=== PATIENT | female | born 1995 | race Caucasian/White ===

== ENCOUNTER 2018-01-03 13:46 | Emergency (ER) | payer OTHER ==
[2018-01-03] MEDS ORDERED: ASPI-1471 PO (14:06)
--- NOTE | 2018-01-03 14:06 | ER Report ---
History and Physical Time Seen By MD: 14:04 Hx. of Stated Complaint: patient had a iud placed a week; pt had an IUD that needed replaced, pt was , fertilized egg was d/c and new iud was placed; pt states increased bleeding and pain. (PRINCE COLLINS MD) HPI/ROS CHIEF COMPLAINT: Pelvic pain HISTORY OF PRESENT ILLNESS: Patient is a 22-year-old female who presents emergency Department with 1 week worth of pelvic pain and cramping along with some vaginal bleeding. She states proximal a 1 week ago she had an IUD placed in her hometown in [place]. She states she's had problems with IUDs in the past in that prior to the one that was displaced she had pelvic cramping but had a with the IUD. And so she ended up having a D&C and then the current IUD was placed approximately 7 days ago. She did call her [employer] OPERATOR and she was told to come to the emergency department for evaluation and possible removal of the IUD. Patient denies any fevers or chills. She denies any vomiting. She denies prior history of STDs. REVIEW OF SYSTEMS: Respiratory: No cough, no dyspnea. Cardiovascular: No chest pain, no palpitations. Gastrointestinal: No vomiting, no abdominal pain. Musculoskeletal: No back pain. : Pelvic pain, vaginal bleeding (PRINCE COLLINS MD) Allergies: Coded Allergies: No Known Drug Allergies (Unverified , 01/03/18) Home Meds Active Scripts Doxycycline Hyclate (DOXYCYCLINE HYCLATE) 100 Mg Tablet, 100 MG PO BID, #28 TAB Prov:CHRISTI CARDONA V DO 01/03/18 Hydrocodone Bit/Acetaminophen (HYDROCODON-ACETAMINOPHEN 5-325) 1 Each Tablet, 1 EACH PO Q4-6H PRN for PAIN, #15 TAB Prov:CHRISTI CARDONA V DO 01/03/18 Reported Medications Aspirin (ASPIR 81) 81 Mg Tablet.dr, 81 MG PO QDAY, TAB 01/03/18 Past Medical/Surgical History Factor V Leydig disorder (PRINCE COLLINS MD) Hx Substance Use Disorder: No (PRINCE COLLINS MD) Constitutional Vital Sign - Last 24 Hours 01/03/18 13:55 Temp 98.6 Pulse 89 Resp 18 B/P (MAP) 134/84 Pulse Ox 95 O2 Delivery Room Air (LAURORA,CHRISTI V DO) Physical Exam General Appearance: The patient is alert, has no immediate need for airway protection and no current signs of toxicity. Respiratory: Chest is non tender, lungs are clear to auscultation. Cardiac: regular rate and rhythm Gastrointestinal: Abdomen is soft and non tender, no masses, bowel sounds normal. (PRINCE COLLINS MD) Medical Decision Making Data Points Result Diagram: 01/03/18 1437 01/03/18 1437 Laboratory Hematology Test 01/03/18 13:51 01/03/18 14:37 Urine Color Yellow Urine Clarity Clear Urine pH 7.0 pH (4.8-9.5) Urine Specific [place] 1.017 Urine Protein Negative mg/dL (NEGATIVE) Urine Glucose (UA) Negative mg/dL (NEGATIVE) Urine Ketones Negative mg/dL (NEGATIVE) Urine Blood Trace intact (NEGATIVE) Urine Nitrite Negative (NEGATIVE) Urine Bilirubin Negative (NEGATIVE) Urine Urobilinogen Negative mg/dL (0.2-1.9) Urine Leukocyte Esterase Negative (NEGATIVE) Urine RBC 38 /HPF (0-2/HPF) Urine WBC 3 /HPF (0-5/HPF) Urine Squamous Epithelial Cells Many /LPF (</=FEW) Urine Bacteria Negative /HPF (NONE-FEW) Urine Mucus None /HPF (NONE-FEW) Urine HCG, Qualitative Positive (NEGATIVE) Red Blood Count 4.95 M/uL (4.17-5.56) Mean Corpuscular Volume 84.5 fL (80.0-96.0) Mean Corpuscular Hemoglobin 29.5 pg (26.0-33.0) Mean Corpuscular Hemoglobin Concent 35.0 g/dL (32.0-36.0) Red Cell Distribution Width 12.8 % (11.5-14.5) Mean Platelet Volume 8.5 fL (7.2-11.1) Neutrophils (%) (Auto) 62.7 % (39.4-72.5) Lymphocytes (%) (Auto) 27.6 % (17.6-49.6) Monocytes (%) (Auto) 7.1 % (4.1-12.4) Eosinophils (%) (Auto) 2.0 % (0.4-6.7) Basophils (%) (Auto) 0.6 % (0.3-1.4) Nucleated RBC Relative Count (auto) 0.0 /100WBC Neutrophils # (Auto) 3.7 K/uL (2.0-7.4) Lymphocytes # (Auto) 1.6 K/uL (1.3-3.6) Monocytes # (Auto) 0.4 K/uL (0.3-1.0) Eosinophils # (Auto) 0.1 K/uL (0.0-0.5) Basophils # (Auto) 0.0 K/uL (0.0-0.1) Nucleated RBC Absolute Count (auto) 0.00 K/uL Sodium Level 139 mmol/L (137-145) Potassium Level 4.0 mmol/L (3.5-5.0) Chloride Level 103 mmol/L (98-107) Carbon Dioxide Level 27 mmol/L (22-31) Blood Urea Nitrogen 8 mg/dl (7-18) Creatinine 0.70 mg/dl (0.52-1.04) Glomerular Filtration Rate Calc > 60.0 Random Glucose 92 mg/dl (75-110) Calcium Level 9.5 mg/dl (8.4-10.2) Human Chorionic Gonadotropin, Quant 3375 mIU/ml Chemistry Test 01/03/18 13:51 01/03/18 14:37 Urine Color Yellow Urine Clarity Clear Urine pH 7.0 pH (4.8-9.5) Urine Specific [place] 1.017 Urine Protein Negative mg/dL (NEGATIVE) Urine Glucose (UA) Negative mg/dL (NEGATIVE) Urine Ketones Negative mg/dL (NEGATIVE) Urine Blood Trace intact (NEGATIVE) Urine Nitrite Negative (NEGATIVE) Urine Bilirubin Negative (NEGATIVE) Urine Urobilinogen Negative mg/dL (0.2-1.9) Urine Leukocyte Esterase Negative (NEGATIVE) Urine RBC 38 /HPF (0-2/HPF) Urine WBC 3 /HPF (0-5/HPF) Urine Squamous Epithelial Cells Many /LPF (</=FEW) Urine Bacteria Negative /HPF (NONE-FEW) Urine Mucus None /HPF (NONE-FEW) Urine HCG, Qualitative Positive (NEGATIVE) White Blood Count 5.9 k/uL (4.5-11.0) Red Blood Count 4.95 M/uL (4.17-5.56) Hemoglobin 14.6 g/dL (12.0-16.0) Hematocrit 41.9 % (34.0-47.0) Mean Corpuscular Volume 84.5 fL (80.0-96.0) Mean Corpuscular Hemoglobin 29.5 pg (26.0-33.0) Mean Corpuscular Hemoglobin Concent 35.0 g/dL (32.0-36.0) Red Cell Distribution Width 12.8 % (11.5-14.5) Platelet Count 294 K/uL (150-450) Mean Platelet Volume 8.5 fL (7.2-11.1) Neutrophils (%) (Auto) 62.7 % (39.4-72.5) Lymphocytes (%) (Auto) 27.6 % (17.6-49.6) Monocytes (%) (Auto) 7.1 % (4.1-12.4) Eosinophils (%) (Auto) 2.0 % (0.4-6.7) Basophils (%) (Auto) 0.6 % (0.3-1.4) Nucleated RBC Relative Count (auto) 0.0 /100WBC Neutrophils # (Auto) 3.7 K/uL (2.0-7.4) Lymphocytes # (Auto) 1.6 K/uL (1.3-3.6) Monocytes # (Auto) 0.4 K/uL (0.3-1.0) Eosinophils # (Auto) 0.1 K/uL (0.0-0.5) Basophils # (Auto) 0.0 K/uL (0.0-0.1) Nucleated RBC Absolute Count (auto) 0.00 K/uL Glomerular Filtration Rate Calc > 60.0 Calcium Level 9.5 mg/dl (8.4-10.2) Human Chorionic Gonadotropin, Quant 3375 mIU/ml Urinalysis Test 01/03/18 13:51 Urine Color Yellow Urine Clarity Clear Urine pH 7.0 pH (4.8-9.5) Urine Specific [place] 1.017 Urine Protein Negative mg/dL (NEGATIVE) Urine Glucose (UA) Negative mg/dL (NEGATIVE) Urine Ketones Negative mg/dL (NEGATIVE) Urine Blood Trace intact (NEGATIVE) Urine Nitrite Negative (NEGATIVE) Urine Bilirubin Negative (NEGATIVE) Urine Urobilinogen Negative mg/dL (0.2-1.9) Urine Leukocyte Esterase Negative (NEGATIVE) Urine RBC 38 /HPF (0-2/HPF) Urine WBC 3 /HPF (0-5/HPF) Urine Squamous Epithelial Cells Many /LPF (</=FEW) Urine Bacteria Negative /HPF (NONE-FEW) Urine Mucus None /HPF (NONE-FEW) Urine HCG, Qualitative Positive (NEGATIVE) (CHRISTI CARDONA DO) ED Course/Re-evaluation ED Course 01/03/2018 2:17:20 pm plan at this time will be urinalysis and urine test. test is negative will perform pelvic exam to see if IUD can be removed. 01/03/2018 2:29:58 pm patient with positive urine test. While this could be related to her most recent status post therapeutic it also potentially could represent new . Plan at this time will be beta hCG Quant was also check CBC and electrolytes. We will send for GC and chlamydia. I will also perform a transvaginal ultrasound to look for signs of . Decision to Disposition Date: Jan 03, 2018 Decision to Disposition Time: 16:30 (PRINCE COLLINS MD) ED Course 01/03/2018 4:06:[address] Welch, diploma maker. [place] pt could have an endometritis. Recommend doxy 100mg bid for two weeks. And pt is to be followed up with repeat quant this sunday. 01/03/2018 4:20:00 pm Pt understands the need for repeat quant. PT was able to find her report from her ob from a few days ago which said her quant was 5528 at that time. It is encouraging that it is going down however until it is zero there is always a chance of retained products and pt will need close follow up. Pt states she understands. Pt was given a goodrx coupon for the doxy to rafat. Decision to Disposition Date: Jan 03, 2018 Decision to Disposition Time: 16:21 (CHRISTI CARDONA DO) Depart Departure Latest Vital Signs Vital Signs Date Time Temp Pulse Resp B/P (MAP) Pulse Ox O2 Delivery O2 Flow Rate FiO2 01/03/18 13:55 98.6 89 18 134/84 95 Room Air (CHRISTI CARDONA DO) Impression: Primary Impression: Positive test Additional Impressions: Pelvic pain History of use of contraceptive intrauterine device (IUD) Endometritis Condition: Stable Disposition: HOME OR SELF-CARE Referrals: FLORENCIO MADSEN MD Call to schedule follow-up appointment for evaluation of possible IUD removal New Scripts Doxycycline Hyclate (DOXYCYCLINE HYCLATE) 100 Mg Tablet 100 MG PO BID, #28 TAB Prov: CHRISTI CARDONA Bari DO 01/03/18 Hydrocodone Bit/Acetaminophen (HYDROCODON-ACETAMINOPHEN 5-325) 1 Each Tablet 1 EACH PO Q4-6H PRN for PAIN, #15 TAB Prov: TAMANNAADRIANADAVICHRISTI Bari DO 01/03/18 Patient Instructions: Endometritis (GEN) Additional Instructions: Your level, BHCG 3375, needs to repeated on Sunday. You have have that done at the hospital lab. It is important that it is followed until you have a level of zero. I spoke with Dr. Welch our [employer] O[employer]. You can follow up with him. Your pain may be an infection of your uterine lining. We are starting you on Doxycycline twice a day for two weeks. If your symptoms worsen prior to seeing Dr. Welch then please return. Problem Qualifiers PRINCE COLLINS MD Jan 03, 2018 14:06 CHRISTI CARDONA DO Jan 03, 2018 16:16
[2018-01-03 14:54] LABS: PLATELET COUNT, AUTOMATED 294 K/uL (150-450)
[2018-01-03 15:30] VITALS: BP 115/88
--- NOTE | 2018-01-03 15:41 | RADIOLOGY IMAGING REPORT ---
FACILITY: [facility] - [place] PATIENT NAME: Marta Rodriguez : 1995 MR: [id number] V: [id number] EXAM DATE: ORDERING PHYSICIAN: PRINCE COLLINS TECHNOLOGIST: Location: [facility] [place] Patient: Marta Rodriguez : 1995 Visit/Account:[id number] Date of Sevice: 01/03/2018 EXAMINATION: Ultrasound transvaginal OB < 14 weeks HISTORY: Positive hCG, patient has IUD in place. LMP 11/04/2017. COMPARISON: None. TECHNIQUE: Transvaginal imaging was performed for detailed assessment of the fetus and maternal pelvic struct ures. Transabdominal imaging was not performed. FINDINGS: : Gestational sac: No intrauterine gestational sac. Maternal: Uterus: There is an IUD present in the endometrium. Ovaries: Right ovary 3.3 x 2.4 x 2.6 cm, left ovary 2.9 x 2.8 x 1.7 cm. 1.9 cm right ovarian corpus luteal cyst. Other adnexa: Negative. Bladder: Limited visualization, grossly negative. Free pelvic fluid: Trace anechoic free fluid in the cul-de-sac. IMPRESSION: 1. of unknown location. Ultrasound follow-up is recommended in one week or sooner if need ed, as ectopic is not excluded by this exam. 2. IUD in the uterus. 3. Trace free fluid in the cul-de-sac appears physiologic. Report Dictated By: Katelyn Painting MD at 01/03/2018 3:31 PM Report E-Signed By: Katelyn Painting MD at 01/03/2018 3:37 PM WSN:[id number]
[2018-01-03] MEDS ORDERED: APAP/HYDROCODONE 325/5 TAB PO ONE (16:05)
[2018-01-03] MEDS ORDERED: DOXYCYCLINE HYCL 100 MG TAB PO ONE (16:05)
[2018-01-03] MEDS ORDERED: IBUPROFEN 600 MG TAB PO ONE (16:05)
[2018-01-03] MEDS ORDERED: DOXY-179 PO (16:10)
[2018-01-03] MEDS ORDERED: LOR5/325 PO (16:10)
== END 2018-01-03 16:33 | disposition home or self-care (01) ==
LOC: ER 13:58
DX: Z33.1 Pregnant state, incidental (principal); R10.2 Pelvic and perineal pain; Z97.5 Presence of (intrauterine) contraceptive device; N71.9 Inflammatory disease of uterus, unspecified
CPT/HCPCS: 76817; 81001; 81025; 82310; 82374; 82435; 82565; 82947; 84132; 84295; 84520; 84702; 85025; 87491; 87591; 99284

== ENCOUNTER → 2018-01-24 | Outpatient (CLI) | payer OTHER ==
[~2018-01-24] MED LIST: ASPI-1471 PO; DOXY-179 PO; LOR5/325 PO
== END ==
LOC: LAB 10:25
PROVIDERS: ATTEND Emergency Medicine
DX: R10.9 Unspecified abdominal pain (principal); Z33.1 Pregnant state, incidental
CPT/HCPCS: 36415; 84702